=== PATIENT | male | born 1975 | race Caucasian/White ===

== ENCOUNTER 2020-07-03 19:08 | Emergency (ER) | payer OTHER ==
[2020-07-03 19:37] VITALS: BP 136/88; PULSE 71; TEMP 98.6; BMI 29.1
[2020-07-03] MEDS ORDERED: DIPHTH,PERTUSS(ACELL),TET 0.5 ML DISP.SYRIN IM ONE (20:33)
== END 2020-07-03 23:44 | disposition home or self-care (01) ==
LOC: JER 19:08
DX: S42.445A Nondisplaced fracture (avulsion) of medial epicondyle of left humerus, initial encounter for closed fracture (principal); S09.90XA Unspecified injury of head, initial encounter; V00.141A Fall from scooter (nonmotorized), initial encounter
CPT/HCPCS: 70450-TC; 72125-TC; 73060-TC-LT-FY; 73070-TC-LT-FY; 73090-TC-LT-FY; 99285-25

== ENCOUNTER 2022-05-14 04:30 | Day surgery (SDC) | payer OTHER ==
[2022-05-10 15:44] VITALS: BMI 29.8
[2022-05-14 07:39] VITALS: TEMP 98.4
[2022-05-14 09:10] VITALS: RESP 20
[2022-05-14 13:33] VITALS: BP 108/67; PULSE 69
== END 2022-05-14 09:30 | disposition home or self-care (01) ==
LOC: JASU-ENDO 04:30
PROVIDERS: ATTEND Student in an Organized Health Care Education/Training Program
PROC: 0D5L8ZZ Destruction of Transverse Colon, Via Natural or Artificial Opening Endoscopic (ICD-10-PCS; 2022-05-14)
PROC: 0D5M8ZZ Destruction of Descending Colon, Via Natural or Artificial Opening Endoscopic (ICD-10-PCS; principal; 2022-05-14 08:00)
DX: Z12.11 Encounter for screening for malignant neoplasm of colon (principal); D12.4 Benign neoplasm of descending colon; D12.3 Benign neoplasm of transverse colon; K64.8 Other hemorrhoids; K57.30 Diverticulosis of large intestine without perforation or abscess without bleeding
CPT/HCPCS: 88305-TC